=== PATIENT | female | born 1940 | race Caucasian/White ===

== ENCOUNTER → 2018-03-16 | Outpatient (CLI) | payer MEDICARE, OTHER ==
--- NOTE | 2018-03-16 11:55 | RAD ---
Bilateral renal ultrasound without comparison for chronic kidney disease, stage III. TECHNIQUE AND FINDINGS: Real-time grayscale and color Doppler evaluation of the kidneys and urinary bladder is performed. The right kidney measures 10.6 x 5.4 x 5.3 cm and is free of any hydronephrosis. There is an extrarenal pelvis. No focal parenchymal abnormality. There is at least one echogenic nonobstructing calyceal calculus at the inferior pole. The left kidney measures 11.1 x 5.3 x 4.9 cm and is free of any hydronephrosis or focal parenchymal abnormality. There is normal color flow to both kidneys. The urinary bladder is fluid distended and grossly unremarkable. Bilateral ureteral jets are identified. Postvoid residual is 30.4 cc. IMPRESSION: 1. Nonobstructing right renal calculus at the inferior pole. 2. No evidence of obstructive uropathy. Electronically signed by: Victor Hugo Vela MD (03/16/2018 11:52 AM) [id number]
== END | disposition home or self-care (01) ==
LOC: US 10:03
PROVIDERS: ATTEND Family Medicine
DX: I12.9 Hypertensive chronic kidney disease with stage 1 through stage 4 chronic kidney disease, or unspecified chronic kidney disease (principal); N18.3 Chronic kidney disease, stage 3 (moderate); N20.0 Calculus of kidney; Z90.710 Acquired absence of both cervix and uterus
CPT/HCPCS: 76770